=== PATIENT | male | born 1975 | race Caucasian/White ===

== ENCOUNTER 2018-05-13 08:29 | Outpatient (CLI) | payer SELFPAY | END 2018-05-13 08:30 | disposition home or self-care (01) | LOC: C.LAB 08:29 | DX: D50.0 Iron deficiency anemia secondary to blood loss (chronic) (principal); R94.5 Abnormal results of liver function studies ==

== ENCOUNTER 2018-05-13 08:33 | Outpatient (CLI) | payer SELFPAY | END 2018-05-13 08:34 | disposition home or self-care (01) | LOC: C.LAB 08:33 | DX: K70.30 Alcoholic cirrhosis of liver without ascites (principal) ==